=== PATIENT | male | born 1950 | race Caucasian/White ===

== ENCOUNTER 2017-06-19 14:30 | Emergency (ER) | payer MEDICAID, OTHER ==
[2017-06-19 14:44] VITALS: O2SAT 95
--- NOTE | 2017-06-19 14:56 | EDPHY ---
H & P Stated Complaint: Sent for pre-sleep lab testing for EKG; hx intermittent palpitations x 3 mo Time Seen by Provider: 06/19/17 14:47 HPI/ROS: CHIEF COMPLAINT: Arrhythmia noted at sleep lab HISTORY OF PRESENT ILLNESS: The patient is referred to the ED from a sleep lab where he was diagnosed with possible atrial fibrillation. The patient reportedly has had dyspnea and difficulty sleeping for the past several months. The patient has a past medical history significant only for hypothyroidism. The patient has had his thyroid hormone increased the 3 times over the past year. The patient tells me he has remote history of arrhythmia 20 years ago. The patient denies asymmetric calf pain or swelling. The patient denies fever, cough or congestion. The patient denies abdominal pain, vomiting or diarrhea. The patient does report he has had approximately 20 lb weight gown over the past year. REVIEW OF SYSTEMS: A comprehensive 10 point review of systems is otherwise negative aside from elements mentioned in the history of present illness. Source: Patient Exam Limitations: No limitations - Personal History Current Tetanus Diphtheria and Acellular Pertussis (TDAP): Yes - Medical/Surgical History Other PMH: thyroid. being evaluated for sleep apnea - Social History Smoking Status: Former smoker - Physical Exam Exam: General Appearance: Alert, no distress Eyes: Pupils equal and round no pallor or injection ENT, Mouth: Mucous membranes moist Respiratory: There are no retractions, lungs are clear to auscultation Cardiovascular: Regular rate and rhythm Gastrointestinal: Abdomen is soft and nontender, no masses, bowel sounds normal Neurological: A&O, normal motor function, normal sensory exam, normal cranial nerves Skin: Warm and dry, no rashes Musculoskeletal: Neck is supple nontender Extremities: symmetrical, full range of motion Constitutional: Initial Vital Signs Temperature (C) 36.5 C 06/19/17 14:41 Heart Rate 86 06/19/17 14:41 Respiratory Rate 18 06/19/17 14:41 Blood Pressure 162/78 H 06/19/17 14:41 O2 Sat (%) 95 06/19/17 14:41 O2 Delivery Mode Room Air Allergies/Adverse Reactions: No Known Allergies Allergy (Unverified 06/19/17 14:41) Home Medications: Medication Instructions Recorded Levothyroxine [Synthroid 88 mcg 88 mcg PO DAILY06 06/19/17 (*)] Medical Decision Making - Diagnostics Imaging Results: Imaging Impressions Chest X-Ray 06/19/17 14:54 Impression: Minimal airways disease. Otherwise nothing acute. ED Course/Re-evaluation: Patient presents to the ED with newly diagnosed atrial arrhythmia. In the ED is noted to have atrial flutter with 3-1 conduction. The patient is in no acute distress without acute hypoxemia. He has no complaints of chest pain or active shortness of breath. Patient's laboratory studies are unremarkable. He has an indeterminately elevated proBNP level. The patient's troponin is normal. At this point time I do feel the patient can follow up with Cardiology for a close follow-up. He has been instructed to return to the ED for palpitations, chest pain, shortness of breath or other concerns. I did curbside Dr. Mynor Price from Cardiology who has been provided the patient's telephone number and contact information. The patient will follow up with Cardiology within the next several days. The patient will contact Cardiology tomorrow. Differential Diagnosis: Differential diagnosis considered includes atrial fibrillation, atrial flutter, acute coronary syndrome, congestive heart failure, anemia, metabolic abnormality - Data Points Laboratory Results: Laboratory Results 06/19/17 15:20 06/19/17 15:20 06/19/17 06/19/17 15:20 15:20 WBC 10.35 10^3/uL H 10^3/uL (3.80-9.50) RBC 4.69 10^6/uL 10^6/uL (4.40-6.38) Hgb 15.6 g/dL g/dL (13.7-17.5) Hct 44.4 % % (40.0-51.0) MCV 94.7 fL fL (81.5-99.8) MCH 33.3 pg pg (27.9-34.1) MCHC 35.1 g/dL g/dL (32.4-36.7) RDW 12.2 % % (11.5-15.2) Plt Count 220 10^3/uL 10^3/uL (150-400) MPV 11.1 fL fL (8.7-11.7) Neut % (Auto) 62.2 % % (39.3-74.2) Lymph % (Auto) 27.5 % % (15.0-45.0) [place] % (Auto) 6.1 % % (4.5-13.0) Eos % (Auto) 2.8 % % (0.6-7.6) Baso % (Auto) 0.7 % % (0.3-1.7) Nucleat RBC Rel Count 0.0 % % (0.0-0.2) Absolute Neuts (auto) 6.44 10^3/uL 10^3/uL (1.70-6.50) Absolute Lymphs (auto) 2.85 10^3/uL 10^3/uL (1.00-3.00) Absolute Monos (auto) 0.63 10^3/uL 10^3/uL (0.30-0.80) Absolute Eos (auto) 0.29 10^3/uL 10^3/uL (0.03-0.40) Absolute Basos (auto) 0.07 10^3/uL 10^3/uL (0.02-0.10) Absolute Nucleated RBC 0.00 10^3/uL 10^3/uL (0-0.01) Immature Gran % 0.7 % % (0.0-1.1) Immature Gran # 0.07 10^3/uL 10^3/uL (0.00-0.10) Sodium 138 mEq/L mEq/L (134-144) Potassium 4.7 mEq/L mEq/L (3.5-5.2) Chloride 106 mEq/L mEq/L (97-110) Carbon Dioxide 20 mEq/l L mEq/l (22-31) Anion Gap 12 mEq/L mEq/L (8-16) BUN 21 mg/dL mg/dL (7-23) Creatinine 1.0 mg/dL mg/dL (0.7-1.3) Estimated GFR > 60 Glucose 99 mg/dL mg/dL (70-100) Calcium 9.1 mg/dL mg/dL (8.5-10.4) Troponin I < 0.012 ng/mL ng/mL (0.000-0.034) NT-Pro-B Natriuret Pep 1390 pg/mL H pg/mL (0-125) Departure - Departure Disposition: Home, Routine, Self-Care Clinical Impression: Atrial flutter Condition: Good Instructions: Atrial Flutter (ED) Additional Instructions: 1. Please contact the planning manager you have been referred to tomorrow to schedule a follow-up visit. 2. Please return to the ED for any chest pain, shortness of breath or other concerns. Referrals: Aldair Street MD [Medical Doctor] - As per Instructions
--- NOTE | 2017-06-19 15:05 | CPEKG ---
Heart Rate: 77 RR Interval: 779 QRSD Interval: 112 QT Interval: 452 QTC Interval: 512 QRS [place]: 10 T Wave [place]: 46 EKG Severity - ABNORMAL ECG - EKG Impression: A-FLUTTER W/ PREDOM 3:1 AV BLOCK, A-RATE 250 EKG Impression: PAIRED VENTRICULAR PREMATURE COMPLEXES EKG Impression: NONSPECIFIC INTRAVENTRICULAR CONDUCTION DELAY Electronically Signed By: Real Ochoa 19-Jun-2017 16:58:54
[2017-06-19 15:23] LABS: % IMMATURE GRANULYOCYTES 0.7 % (0.0-1.1); ABSOLUTE IMMATURE GRANULOCYTES 0.07 10^3/uL (0.00-0.10); ADD DIFF? NO; ADD MORPH? NO; ADD SCAN? NO; ATYPICAL LYMPHOCYTE FLAG 0 (0-99); FRAGMENT RBC FLAG 0 (0-99); HEMATOCRIT 44.4 % (40.0-51.0); HEMOGLOBIN 15.6 g/dL (13.7-17.5); LEFT SHIFT FLG 0 (0-99); LIPEMIA HEMOLYSIS FLAG 90 (0-99); MEAN CELL HEMOGLOBIN 33.3 pg (27.9-34.1); MEAN CELL HEMOGLOBIN CONCENTR. 35.1 g/dL (32.4-36.7); MEAN CELL VOLUME 94.7 fL (81.5-99.8); MEAN PLATELET VOLUME 11.1 fL (8.7-11.7); PLATELET CLUMPS FLAG 0 (0-99); PLATELET COUNT 220 10^3/uL (150-400); RED BLOOD CELL COUNT 4.69 10^6/uL (4.40-6.38); RED CELL DISTRIBUTION WIDTH 12.2 % (11.5-15.2)
[2017-06-19 15:42] LABS: ANION GAP 12 mEq/L (8-16); CALCIUM 9.1 mg/dL (8.5-10.4); CARBON DIOXIDE 20 mEq/l (22-31); CHLORIDE 106 mEq/L (97-110); GLOMERULAR FILTRATION RATE > 60; GLUCOSE 99 mg/dL (70-100); POTASSIUM 4.7 mEq/L (3.5-5.2); SODIUM 138 mEq/L (134-144)
[2017-06-19 15:53] LABS: TROPONIN I < 0.012 ng/mL (0.000-0.034)
[2017-06-19 17:04] VITALS: BP 138/82; PULSE 61; RESP 20; TEMP 98.1
== END 2017-06-19 17:04 | disposition home or self-care (01) ==
DX: I48.92 Unspecified atrial flutter (principal); Z87.891 Personal history of nicotine dependence

== ENCOUNTER → 2017-06-21 | Outpatient (CLI) | payer OTHER, MEDICAID | LOC: BHFA 13:15 | PROVIDERS: ATTEND Internal Medicine Cardiovascular Disease | DX: G47.30 Sleep apnea, unspecified (principal) ==

== ENCOUNTER → 2017-07-01 | Outpatient (CLI) | payer OTHER, MEDICAID | LOC: FCPNEURO 20:00 | PROVIDERS: ATTEND Internal Medicine Sleep Medicine | DX: G47.31 Primary central sleep apnea (principal); G47.61 Periodic limb movement disorder ==

== ENCOUNTER 2017-07-26 10:48 | Day surgery (SDC) | payer OTHER, MEDICAID ==
[2017-07-26] MEDS ORDERED: ATROPINE SULFATE 1 MG/10 ML SYR IVP ONE (10:50)
[2017-07-26] MEDS ORDERED: BENZOCAINE UNIT DOSE SPRAY HURRICAINE MM ONE (10:50)
[2017-07-26] MEDS ORDERED: MIDAZOLAM 2 MG/2 ML VIAL IVP ONE (10:50)
[2017-07-26] MEDS ORDERED: NS 500 ML IV ONE (10:50)
[2017-07-26] MEDS ORDERED: fentaNYL 100 MCG/2 ML INJ IVP ONE (10:50)
--- NOTE | 2017-07-26 11:14 | CPEKG ---
Heart Rate: 104 RR Interval: 577 QRSD Interval: 114 QT Interval: 356 QTC Interval: 469 QRS [place]: 4 T Wave [place]: 231 EKG Severity - ABNORMAL ECG - EKG Impression: ATRIAL FLUTTER, A-RATE 258 EKG Impression: NONSPECIFIC INTRAVENTRICULAR CONDUCTION DELAY EKG Impression: ABNRM R PROG, CONSIDER ASMI OR LEAD PLACEMENT Electronically Signed By: Kalyan Capone 26-Jul-2017 11:22:32
--- NOTE | 2017-07-26 11:17 | PDHPUP ---
History & Physical Update H&P update statement: This history and physical update is based on an assessment of the patient which was completed after admission or registration (within 24 hours), but prior to the surgery/procedure. H&P update: H&P reviewed & patient examined, no change in patient's condition since H&P completed
[2017-07-26 11:34] VITALS: RESP 19
[2017-07-26] MEDS ORDERED: LIDOCAINE 2% 5 ML SDV ONE (11:49)
[2017-07-26] MEDS ORDERED: PROPOFOL 200 MG/20 ML VIAL ONE (11:49)
--- NOTE | 2017-07-26 11:55 | PDANEPAE ---
ANE History of Present Illness bakari/cv ANE Past Medical History - Cardiovascular History Hx Hypertension: No Hx Arrhythmias: Yes - Pulmonary History Hx COPD: No Hx Asthma/Reactive Airway Disease: No Hx Recent Upper Respiratory Infection: No Hx Oxygen in Use at Home: No Hx Sleep Apnea: No - Neurologic History Hx Cerebrovascular Accident: No Hx Seizures: No Hx Dementia: No - Endocrine History Hx Diabetes: No - Renal History Hx Renal Disorders: No - Liver History Hx Hepatic Disorders: No ANE Review of Systems Review of Systems: - Exercise capacity METS (RN): 4 METS ANE Patient History - Allergies Allergies/Adverse Reactions: No Known Allergies Allergy (Unverified 06/19/17 14:41) - Home Medications Home Medications: Effient 07/26/17 [Last Taken 07/26/17 08:00] Levothyroxine 07/26/17 [Last Taken 07/26/17 08:00] - Anes Hx Anes Hx: no prior problems - Smoking Hx Smoking Status: Former smoker ANE Labs/Vital Signs - Labs Result Diagrams: 07/26/17 11:35 - Vital Signs Respiratory Rate: 19 Height: 177.8 cm Weight: 103.419 kg ANE Physical Exam - Airway Mallampati Score: Class 2 Mouth exam: normal dental/mouth exam - Pulmonary Pulmonary: no respiratory distress - Cardiovascular Cardiovascular: irregularly irregular - ASA Status ASA Status: II ANE Anesthesia Plan Anesthesia Plan: GA with mask
[2017-07-26 11:56] LABS: INR 1.18 (0.83-1.16)
[2017-07-26 12:05] LABS: ANION GAP 11 mEq/L (8-16); CALCIUM 9.1 mg/dL (8.5-10.4); CARBON DIOXIDE 20 mEq/l (22-31); CHLORIDE 108 mEq/L (97-110); CREATININE 1.1 mg/dL (0.7-1.3); GLOMERULAR FILTRATION RATE > 60; GLUCOSE 113 mg/dL (70-100); MAGNESIUM 1.7 mg/dL (1.6-2.3); POTASSIUM 4.4 mEq/L (3.5-5.2); SODIUM 139 mEq/L (134-144)
--- NOTE | 2017-07-26 12:17 | POSTANESTH ---
Post Anesthetic Evaluation Cardiovascular Status: Normal, Stable Respiratory Status: Normal, Stable Level of Consciousness/Mental Status: Can Participate in Eval Pain Control: Adequate, Prn Tx Ordered Nausea/Vomiting Control: Adequate, Prn Tx Ordered Complications Possibly Related to Anesthesia: None Noted
--- NOTE | 2017-07-26 12:22 | PDTEE1 ---
CAITLIN Cardioversion Procedure Procedure: electrical cardioversion, transesophageal echo Indications: other (atrial flutter) Anticoagulation: eliquis Procedural Details: Pads were placed in anterior-posterior position. CAITLIN probe was advanced and standard images obtained. There is no evidence of left atrial or left atrial appendage thrombus. Synchronized cardioversion attempt #1: 100J Results: normal sinus rhythm Conclusions: successful CAITLIN cardioversion Patient Problems: Problems Problem Status Onset Atrial flutter Acute
--- NOTE | 2017-07-26 13:24 | CPEKG ---
Heart Rate: 69 RR Interval: 870 P-R Interval: 244 QRSD Interval: 104 QT Interval: 420 QTC Interval: 450 P [place]: 23 QRS [place]: 2 T Wave [place]: 50 EKG Severity - ABNORMAL ECG - EKG Impression: SINUS RHYTHM EKG Impression: ATRIAL PREMATURE COMPLEX EKG Impression: FIRST DEGREE AV BLOCK EKG Impression: PROBABLE LEFT ATRIAL ABNORMALITY EKG Impression: ABNRM R PROG, CONSIDER ASMI OR LEAD PLACEMENT EKG Impression: BORDERLINE T WAVE ABNORMALITIES Electronically Signed By: Kalyan Capone 26-Jul-2017 13:36:56
--- NOTE | 2017-07-29 13:48 | ECHO ---
[email or web address] [address] [address] Main: [phone] Fax: Transesophageal Echocardiography Name: VENESSA ACUNA MR#: [id number] Study Date: 07/26/2017 Study Time: 11:58 AM Date of : 1950 Age: 67 year(s) Height: ( ) Weight: ( ) BSA: Gender: Male Examination: CAITLIN Indication: Atrial Flutter Image Quality: Contrast: Requested by: Kalyan Capone Heart Rate: Rhythm: BP: / Procedure Staff Credit Risk Analyst: Reading Physician: Kalyan Capone Requesting Provider: CAITLIN Exam Details Conclusions: The ejection fraction is estimated to be 40 %. An agitated saline study was performed and was negative for intracardiac shunting. Moderate mitral valve regurgitation is present. Measurements: Chambers Valvular Assessment AV/MV Valvular Assessment TV/PV Normal Normal Normal Name Value Range Name Value Range Name Value Range EF Range: 40 % Additional Measurements: Findings: The ejection fraction is estimated to be 40 %. Left Atrium: An agitated saline study was performed and was negative for intracardiac shunting. Left Atrial Appendage: No thrombus in left appendage. Mitral Valve: Moderate mitral valve regurgitation is present. Aortic Valve: The aortic valve is tri-leaflet. There is no aortic valve regurgitation. Patient: VENESSA ACUNA Study Date: 07/26/2017 Page 1 of 2 11:58 AM Exam Comments: l1n (No Signature Object) Patient: VENESSA ACUNA Study Date: 07/26/2017 Page 2 of 2 11:58 AM [id number]
== END 2017-07-26 13:47 | disposition home or self-care (01) ==
LOC: FCATH 10:48
PROVIDERS: ATTEND Internal Medicine Cardiovascular Disease
PROC: B245ZZ4 Ultrasonography of Left Heart, Transesophageal (ICD-10-PCS; principal; 2017-07-26)
PROC: 5A2204Z Restoration of Cardiac Rhythm, Single (ICD-10-PCS; principal; 2017-07-26)
DX: I48.92 Unspecified atrial flutter (principal); I34.0 Nonrheumatic mitral (valve) insufficiency; Z87.891 Personal history of nicotine dependence
CPT/HCPCS: J2704

== ENCOUNTER 2017-10-03 10:12 | Day surgery (SDC) | payer OTHER, MEDICAID ==
[2017-10-03] MEDS ORDERED: ATROPINE SULFATE 1 MG/10 ML SYR IVP ONE (10:16)
[2017-10-03] MEDS ORDERED: fentaNYL 100 MCG/2 ML INJ IVP ONE (10:16)
[2017-10-03] MEDS ORDERED: BENZOCAINE UNIT DOSE SPRAY HURRICAINE MM ONE (10:16)
[2017-10-03] MEDS ORDERED: NS 500 ML IV ONE (10:16)
[2017-10-03] MEDS ORDERED: MIDAZOLAM 2 MG/2 ML VIAL IVP ONE (10:16)
--- NOTE | 2017-10-03 10:30 | CPEKG ---
Heart Rate: 69 RR Interval: 870 QRSD Interval: 106 QT Interval: 420 QTC Interval: 450 QRS [place]: 4 T Wave [place]: 39 EKG Severity - ABNORMAL ECG - EKG Impression: A-FLUTTER W/ PREDOM 4:1 AV BLOCK, A-RATE 278 EKG Impression: PROBABLE INFERIOR INFARCT, AGE INDETERMINATE Electronically Signed By: Garima Bruno 03-Oct-2017 12:47:32
[2017-10-03 11:13] LABS: ANION GAP 11 mEq/L (8-16); APTT 28.5 SEC (23.0-38.0); CALCIUM 8.8 mg/dL (8.5-10.4); CARBON DIOXIDE 23 mEq/l (22-31); CHLORIDE 108 mEq/L (97-110); CREATININE 1.1 mg/dL (0.7-1.3); GLOMERULAR FILTRATION RATE > 60; GLUCOSE 100 mg/dL (70-100); INR 1.16 (0.83-1.16); MAGNESIUM 1.9 mg/dL (1.6-2.3); POTASSIUM 4.4 mEq/L (3.5-5.2); SODIUM 142 mEq/L (134-144)
--- NOTE | 2017-10-03 11:42 | PDANEPAE ---
ANE Past Medical History - Cardiovascular History Hx Hypertension: No Hx Arrhythmias: Yes - Pulmonary History Hx COPD: No Hx Asthma/Reactive Airway Disease: No Hx Recent Upper Respiratory Infection: No Hx Oxygen in Use at Home: No Hx Sleep Apnea: Yes - Neurologic History Hx Cerebrovascular Accident: No Hx Seizures: No Hx Dementia: No - Endocrine History Hx Diabetes: No - Renal History Hx Renal Disorders: No - Liver History Hx Hepatic Disorders: No ANE Review of Systems Review of Systems: - Exercise capacity Exercise capacity: >=4 METS ANE Patient History - Allergies Allergies/Adverse Reactions: No Known Allergies Allergy (Unverified 06/19/17 14:41) - Home Medications Home Medications: Levothyroxine 07/26/17 [Last Taken 07/26/17 08:00] Eliquis 5 mg PO BID 10/03/17 [Last Taken 10/03/17 07:00] - Anes Hx Anes Hx: no prior problems (Cardioverted twice before.) - Smoking Hx Smoking Status: Former smoker ANE Labs/Vital Signs - Labs Result Diagrams: 10/03/17 10:30 - Vital Signs Height: 178 cm Weight: 104.3 kg ANE Physical Exam - Airway Mallampati Score: Class 2 Mouth exam: normal dental/mouth exam - Pulmonary Pulmonary: no respiratory distress, no rales or rhonchi, clear to auscultation - Cardiovascular Cardiovascular: irregularly irregular - ASA Status ASA Status: III ANE Anesthesia Plan Anesthesia Plan: GA with mask
[2017-10-03] MEDS ORDERED: PROPOFOL 200 MG/20 ML VIAL ONE ×2 (11:43→11:46)
--- NOTE | 2017-10-03 11:51 | PDGENHP ---
History & Physical Chief Complaint: symptomatic AFL Relevant Physical Exam: [id number] irreg. cta. ao 3 Cardiorespiratory Assessment: symptomatic AFL for CAITLIN CV
--- NOTE | 2017-10-03 12:18 | PDTEE1 ---
CAITLIN Cardioversion Procedure Procedure: electrical cardioversion, transesophageal echo Indications: cardiomyopathy, other (atrial flutter) Anticoagulation: eliquis Procedural Details: Pads were placed in anterior-posterior position. CAITLIN probe was advanced and standard images obtained. There is no evidence of left atrial or left atrial appendage thrombus. Synchronized cardioversion attempt #1: 100J Results: normal sinus rhythm Conclusions: successful CAITLIN cardioversion (Patient has been counseled re. ablation and will be scheduled for ablation in October.) Patient Problems: Problems Problem Status Onset Atrial flutter Acute
--- NOTE | 2017-10-03 12:21 | POSTANESTH ---
Post Anesthetic Evaluation Cardiovascular Status: Normal, Stable Respiratory Status: Normal, Stable, Similar to Pre-op Cond. Level of Consciousness/Mental Status: Can Participate in Eval, Alert and Oriented Pain Control: Adequate, Prn Tx Ordered Nausea/Vomiting Control: Adequate, Prn Tx Ordered Complications Possibly Related to Anesthesia: None Noted
--- NOTE | 2017-10-03 12:49 | CPEKG ---
Heart Rate: 68 RR Interval: 882 P-R Interval: 244 QRSD Interval: 102 QT Interval: 432 QTC Interval: 460 P [place]: 30 QRS [place]: -2 T Wave [place]: 19 EKG Severity - ABNORMAL ECG - EKG Impression: SINUS RHYTHM EKG Impression: FIRST DEGREE AV BLOCK EKG Impression: PROBABLE LEFT ATRIAL ABNORMALITY Electronically Signed By: Garima Bruno 03-Oct-2017 18:39:16
== END 2017-10-03 13:30 | disposition home or self-care (01) ==
LOC: FCATH 10:12
PROVIDERS: ATTEND Internal Medicine Cardiovascular Disease
PROC: 5A2204Z Restoration of Cardiac Rhythm, Single (ICD-10-PCS; principal; 2017-10-03)
PROC: B245ZZ4 Ultrasonography of Left Heart, Transesophageal (ICD-10-PCS; principal; 2017-10-03)
DX: I48.92 Unspecified atrial flutter (principal); I50.22 Chronic systolic (congestive) heart failure; Z79.01 Long term (current) use of anticoagulants; Z87.891 Personal history of nicotine dependence
CPT/HCPCS: J0461; J2704

== ENCOUNTER 2017-11-06 07:09 | Observation (INO) | payer OTHER, MEDICAID ==
[2017-11-06] MEDS ORDERED: NS 1,000 ML IV ONE (07:12)
--- NOTE | 2017-11-06 07:33 | CPEKG ---
Heart Rate: 68 RR Interval: 882 P-R Interval: 232 QRSD Interval: 100 QT Interval: 380 QTC Interval: 405 P [place]: 17 QRS [place]: 7 T Wave [place]: 41 EKG Severity - ABNORMAL ECG - EKG Impression: SINUS RHYTHM EKG Impression: VENTRICULAR PREMATURE COMPLEX EKG Impression: FIRST DEGREE AV BLOCK EKG Impression: PROBABLE LEFT ATRIAL ABNORMALITY Electronically Signed By: Kalyan Capone 06-Nov-2017 08:41:20
[2017-11-06 07:42] LABS: PLATELET COUNT 210 10^3/uL (150-400)
[2017-11-06 07:51] LABS: INR 0.95 (0.83-1.16); PROTIME(PATIENT) 12.9 SEC (12.0-15.0)
[2017-11-06] MEDS ORDERED: HEPARIN 10,000 UNIT/10 ML MDV (1,000 UNIT/ML) ONE (08:21)
[2017-11-06] MEDS ORDERED: LIDOCAINE 1% 300 MG/30 ML SDV ONE (08:21)
[2017-11-06] MEDS ORDERED: BUPIVACAINE 0.5% 30 ML SDV ONE (08:21)
[2017-11-06] MEDS ORDERED: MIDAZOLAM 2 MG/2 ML VIAL IVP ONE (08:23)
--- NOTE | 2017-11-06 08:24 | PDANEPAE ---
ANE History of Present Illness here for AF ablation ANE Past Medical History - Cardiovascular History Hx Hypertension: No Hx Arrhythmias: Yes Hx CHF / Valvular Disease: No Hx Palpitations: Yes - Pulmonary History Hx COPD: No Hx Asthma/Reactive Airway Disease: No Hx Recent Upper Respiratory Infection: No Hx Oxygen in Use at Home: No Hx Sleep Apnea: Yes - Neurologic History Hx Cerebrovascular Accident: No Hx Seizures: No Hx Dementia: No - Endocrine History Hx Diabetes: No - Renal History Hx Renal Disorders: No - Liver History Hx Hepatic Disorders: No ANE Review of Systems Review of systems is: negative Review of Systems: - Exercise capacity Exercise capacity: >=4 METS ANE Patient History - Allergies Allergies/Adverse Reactions: No Known Allergies Allergy (Unverified 06/19/17 14:41) - Home Medications Home medications: home medication list seen and reviewed Home Medications: Levothyroxine [Synthroid 112 mcg (*)] 224 mcg PO DAILY06 07/26/17 [Last Taken ] Apixaban [Eliquis] 5 mg PO BID 10/03/17 [Last Taken 11/03/17] Herbals/Supplements -Info Only 1 ea PO DAILY 10/30/17 [Last Taken Unknown] Multivitamins [Multivitamin (*)] 1 each PO DAILY 10/30/17 [Last Taken 11/05/17] - NPO status NPO Status: no food or drink >8 hours - Anes Hx Anes Hx: no prior problems - Smoking Hx Smoking Status: Former smoker ANE Labs/Vital Signs - Labs Result Diagrams: 11/06/17 07:30 11/06/17 07:30 - Vital Signs Vital Signs: reviewed preoperatively; see RN documention for details Height: 178 cm Weight: 104.3 kg ANE Physical Exam - Airway Neck exam: FROM Mallampati Score: Class 1 Mouth exam: dentures - Pulmonary Pulmonary: no respiratory distress - Cardiovascular Cardiovascular: regular rate and rhythym - ASA Status ASA Status: II ANE Anesthesia Plan Anesthesia Plan: general endotracheal anesthesia
[2017-11-06] MEDS ORDERED: fentaNYL 100 MCG/2 ML INJ ONE (08:27)
[2017-11-06] MEDS ORDERED: PROPOFOL/EMULSION 500 MG/50 ML BOTTLE IV ONE ×2 (08:28→09:12)
[2017-11-06] MEDS ORDERED: MIDAZOLAM 2 MG/2 ML VIAL ONE (08:28)
--- NOTE | 2017-11-06 08:43 | PDGENHP ---
History & Physical Chief Complaint: AFL History of Present Illness: AFL Pertinent Past, Social, Family History: Cardiomyopathy Relevant Physical Exam: [id number]. CTA. AO3 Cardiorespiratory Assessment: AFL with tachycardia mediated CMP, for AFL ablation
[2017-11-06] MEDS ORDERED: ATROPINE SULFATE 1 MG/10 ML SYR ONE (11:19)
[2017-11-06] MEDS ORDERED: SUGAMMADEX SODIUM 200 MG/2 ML VIAL IVP ONE (11:22)
[2017-11-06] MEDS ORDERED: ONDANSETRON 4 MG/2 ML VIAL IVP PRN (11:26)
[2017-11-06] MEDS ORDERED: ACETAMINOPHEN 325 MG TAB PO PRN (11:26)
--- NOTE | 2017-11-06 11:26 | EPPROC ---
Electrophysiology Procedure Note: ELECTROPHYSIOLOGIC STUDY AND CATHETER MEDIATED ABLATION FOR SUBEUSTACHIAN ISTHMUS DEPENDENT COUNTERCLOCKWISE ATRIAL FLUTTER: INDICATION: Recurrent atrial flutter PROCEDURES PERFORMED: 35000-53 EP evaluation with RA/RV/LA pace/record, with arrhythmia induction 54616-47 EP evaluation with RA/RV pace record, insert/reposition catheter, with arrhythmia induction 20618 SVT ablation 90093 3D mapping Fluoroscopy Catheters & Anesthesia: The patient arrived in the Electrophysiology Laboratory in the fasting state. The right clavicular region, right groin, and left groin area were prepped and draped in the usual sterile manner. Anesthesiologist Dr. Rosa Mckinney administered general anesthesia. Appropriate non-invasive blood pressure, pulse oximetry and end-tidal CO2 monitoring was established. All catheters were placed percutaneously using the modified Seldinger technique , and advanced into position under fluoroscopic guidance. One #7 [place] deflectable octapolar electrode catheter was advanced to the His-bundle position via the left femoral vein (2mm spacing; except the proximal ring which was 25cm from the tip used for unipolar recordings). One #7 [place] deflectable catheter with 10 pairs of electrodes was placed via the left femoral vein into the coronary sinus. One # 7 [place] Halo catheter was inserted through the right femoral vein and was placed at the tricuspid annulus. Heparin 5000 + 3000 U was given (2 boluses during the case) Programmed stimulation was performed from the right atrium, coronary sinus ( left atrium) and right ventricle. Parahisian pacing demonstrated all retrograde conduction over the AV node. On arrival to the Electrophysiology Laboratory the patient was in sinus rhythm. Atrial flutter, CL 230-250 ms was easily induced by CS pacing. Entrainment mapping from lateral TA, septal TA, proximal CS and distal CS confirmed cavotricuspid isthmus dependent atrial flutter. In preparation for ablation of typical atrial flutter, a high-resolution 3D (3 dimensional) Carto electroanatomical map of the sub-Eustachian isthmus and right atrium was obtained during pacing of the posterolateral coronary sinus. For ablation of typical atrial flutter, one Agilis sheath was placed in the right atrium. A #8 [place] deflectable quadrapolar electrode catheter (2mm-5mm- 2mm spacing) with 3.5 mm irrigated tip electrode and location sensor for the Navita mapping system was inserted in the long sheath and advanced to the right atrium. Radiofrequency applications were applied between the tricuspid annulus at 0630 oclock as seen in the AMHARIC view and the inferior vena cava. This achieved conduction block across the isthmus. Following ablation of the atrial flutter, programmed atrial stimulation was performed in the baseline state and during infusion of isoproterenol 2 mcg/min. No atrial arrhythmias were inducible post ablation. Post ablation, a high-resolution electroanatomical map of the sub-Eustachian isthmus was obtained during pacing of the posterolateral coronary sinus. This confirmed conduction block across the sub-Eustachian isthmus. Bidirectional block was also confirmed by pacing. The catheters were removed. Long sheath was changed to short 9Fr sheath. Protamine was administered. The patient was transferred to the cardiovascular holding area in stable condition. Vascular access sheaths were removed in the holding area. There were no apparent complications. CONCLUSIONS: 1. Cavotricuspid isthmus dependent counterclockwise atrial flutter. 2. Successful catheter mediated ablation of cavotricuspid isthmus achieving bi -directional conduction block across cavotricuspid isthmus. 3. No atrial arrhythmias inducible post ablation. 4. No apparent complications. Patient Problems: Problems Problem Status Onset Atrial flutter Acute
--- NOTE | 2017-11-06 12:17 | CPEKG ---
Heart Rate: 58 RR Interval: 1034 P-R Interval: 252 QRSD Interval: 102 QT Interval: 456 QTC Interval: 448 P [place]: 29 QRS [place]: 13 T Wave [place]: 7 EKG Severity - ABNORMAL ECG - EKG Impression: SINUS RHYTHM EKG Impression: FIRST DEGREE AV BLOCK EKG Impression: BORDERLINE T WAVE ABNORMALITIES Electronically Signed By: Kalyan Capone 06-Nov-2017 12:53:16
[2017-11-07 05:20] LABS: PLATELET COUNT 170 10^3/uL (150-400)
[2017-11-07 05:30] LABS: INR 0.99 (0.83-1.16); PROTIME(PATIENT) 13.3 SEC (12.0-15.0)
[2017-11-07 05:37] LABS: CREATINE KINASE 41 IU/L (0-224)
[2017-11-07] MEDS ORDERED: LEVOTHYROXINE 112 MCG TAB PO SCH (06:00)
[2017-11-07 08:30] VITALS: BP 147/67; PULSE 70; RESP 18; TEMP 98.2; O2SAT 94
--- NOTE | 2017-11-07 09:11 | ECHO ---
[email or web address] [address] [address] Main: [phone] Fax: Transthoracic Echocardiogram Name: VENESSA ACUNA MR#: [id number] Study Date: 11/07/2017 Study Time: 07:44 AM Date of : 1950 Age: 67 year(s) Height: 177.8 cm (70 in.) Weight: 103.87 kg (229 lb.) BSA: 2.21 m2 Gender: Male Examination: Echo Indication: F/U post EP study Image Quality: Contrast: Requested by: Kalyan Capone BP: / Heart Rate: Rhythm: Indication: F/U post EP study Procedure Staff Form Presser: Maryjo Miller Physician: Kalyan Capone Requesting Provider: Conclusions: Normal global systolic LV function. The ejection fraction is estimated to be 60-65 %. The left atrium is mildly to moderately dilated. Mild mitral valve regurgitation is present. Mild to moderate tricuspid valve regurgitation. No pericardial effusion. Measurements: Chambers Valvular Assessment AV/MV Valvular Assessment TV/PV Normal Normal Normal Name Value Range Name Value Range Name Value Range Ao Pauline (MM): 3.9 cm (2.2 cm-3.7 AV meanP mmHg ( - ) TR Vmax: 2.84 mm/s ( - ) cm) MV E Vmax: 0.87 m/s ( - ) TR PGmax: 32 mmHg ( - ) IVSd (2D): 1.1 cm (0.6 cm-1.1 MV A Vmax: 0.64 m/s ( - ) syst. PAP: 37 mmHg ( - ) cm) MV E/A: 1.36 ( - ) LVDd (2D): 5.5 cm (4.2 cm-5.9 cm) LVDs (2D): 3.6 cm (2.1 cm-4 cm) LVPWd (2D): 0.8 cm (0.6 cm-1 cm) LVEF (MOD4): 65 % (>=55 %) EF Range: 60-65 % Continued Measurements: Chambers Valvular Assessment AV/MV Valvular Assessment TV/PV Name Value Name Value Name Value LADs: 4.5 cm MV E' Septal: 0.07 m/s CVP (est.): 5 mmHg LADs Lon.9 cm MV E/E' Septal: 12.40 Patient: VENESSA ACUNA Study Date: 11/07/2017 Page 1 of 2 07:44 AM LA Area: 32.8 cm2 MV E/E' Lateral: 8.00 Additional Vessels Name Value Ao Ascendin.2 cm Findings: Left Ventricle: Normal size left ventricle. No LV hypertrophy. Normal global systolic LV function. The ejection fraction is estimated to be 60-65 %. Right Ventricle: Normal size right ventricle. Left Atrium: The left atrium is mildly to moderately dilated. Right Atrium: The right atrium is normal in size. Mitral Valve: The mitral valve is normal in appearance and function. Mild mitral valve regurgitation is present. Aortic Valve: The aortic valve is normal in appearance and function. Tricuspid Valve: The tricuspid valve is normal in appearance and function. Mild to moderate tricuspid valve regurgitation. The pulmonary artery pressure is normal. Pulmonic Valve: The pulmonic valve is normal in appearance and function. Aorta: The aorta is normal. Normal size aortic root measuring 3.9 cm. Normal size ascending aorta measuring 3.2 cm. Pericardium: No pericardial effusion. (No Signature Object) Patient: VENESSA ACUNA Study Date: 11/07/2017 Page 2 of 2 07:44 AM [id number]
--- NOTE | 2017-11-07 09:12 | CPEKG ---
Heart Rate: 67 RR Interval: 896 P-R Interval: 216 QRSD Interval: 100 QT Interval: 412 QTC Interval: 435 P [place]: 46 QRS [place]: -3 T Wave [place]: 31 EKG Severity - ABNORMAL ECG - EKG Impression: SINUS RHYTHM EKG Impression: CONSIDER ANTEROSEPTAL INFARCT Electronically Signed By: Kalyan Capone 07-Nov-2017 12:38:48
[2017-11-07] MEDS ORDERED: APIXABAN 5 MG TAB PO SCH (09:30)
--- NOTE | 2017-11-07 10:10 | GDS ---
[f rep st] DISCHARGE SUMMARY SUPERVISING CATH LAB TECHNOLOGIST: Dr. Kalyan Capone. ADMISSION DIAGNOSES: 1. Paroxysmal atrial flutter. 2. History of systolic congestive heart failure. 3. Hypothyroidism. DISCHARGE SUMMARY: 1. Paroxysmal atrial flutter. 2. Status post electrophysiology study with finding cavotricuspid isthmus dependent counterclockwise atrial flutter, successful catheter-mediated ablation. 3. History of systolic heart failure. 4. Hypothyroidism. PROCEDURES PERFORMED DURING HOSPITALIZATION: 1. Electrocardiogram. 2. Electrophysiology study. 3. Catheter-mediated ablation of atrial flutter. 4. Echocardiogram. BRIEF HISTORY: Please see H and P. Mr. Guzmán is a 67-year-old male with history of atrial flutte r, this has been known in the past to cause systolic heart failure for him. Recently in July, he was in persistent atrial flutter and was cardioverted. Unfortunately, he was found back again in atr ial flutter in September. This was discussed with Dr. Capone, and felt the patient a good candidate to [facility] electrophysiology to see if potentially ablation could be done. HOSPITAL COURSE: Patient was admitted through CVC, prepped for procedure, and taken to electrophysio logy suite. There, Dr. Capone performed electrophysiology procedure, successfully for identifying a cou nterclockwise atrial flutter. At that point, he switched to intervention, and was successfully able to ablate, no inducible atrial arrhythmias were noted after ablation. No apparent complications. Andre messer was transferred back to the CVC, and ultimately to the PCU for overnight observation. Patient reports no chest pain or shortness of breath. He has been up and walking in the unit today without a ny difficulties. He denies any palpitations. Continuous cardiac monitoring shows occasional PVC, no ashlie 1 episode of bigeminy PVC yesterday on arrival to the unit after ablation, but no other malignant arrhythmias that lasted for a few seconds, but no other malignant arrhythmias or pauses noted. PHYSICAL EXAMINATION: Done today. GENERAL APPEARANCE: Medium built, mildly obese, male. He is alert and oriented to person, place, time, and situation. Appears to be under no acute distre ss. VITAL SIGNS: Current blood pressure is 147/67, heart rate 70, sinus rhythm on the monitor, resp irations 18, saturating 94% on room air, temperature of 36.8 degrees Celsius. HEENT: Head is normoc ephalic. Lips and tongue are pink and moist with no signs of cyanosis. Conjunctivae pink. NECK: T rachea is midline, +2 carotid pulses bilateral. No auscultated bruits, no jugular vein distention. RESPIRATORY: Lungs clear to auscultation. No rhonchi, rales or wheezes. No accessory muscle use. No intercostal muscle retraction noted. CARDIAC: Regular rate, regular rhythm, S1, S2, no S3, S4, g allops, rubs or murmur noted. ABDOMEN: Soft, nontender, bowel sounds x4 quadrants. No organomegaly . No palpable masses. SKIN: [place], warm, dry, no cyanosis, no clubbing, no peripheral edema. VASCULAR: +2 carotids bilateral, +2 radials bilateral, +2 dorsal pedal and posterior tibial pulses b ilateral. Catheter insertion site, bilateral groin sites, each site without redness, swelling, drain age, ecchymosis, or hematoma. No auscultated bruit are noted over either site. LABORATORY STUDIES: Drawn today show WBC of 10.35, hemoglobin of 13.0, hematocrit of 38.7, platelet count of 170. INR 0.99. Sodium 140, potassium 4.2, chloride 105, CO2 25, BUN 18, creatinine 0.9, gl ucose 100, calcium 8.3. CK 41. CK-MB 2.4. Troponin of 0.472. Not expected to have elevated cardia c markers status post ablation. STUDIES: EP and ablation procedure, as mentioned above, morning electrocardiogram shows sinus rhythm with nonspecific T-wave abnormalities. Echocardiogram this morning showing normal global LV systolic function, EF 60% to 65%. LE was mildly to moderately dilated. Mild MR, [id number] TR, no pericardial effusion. DISCHARGE DISPOSITION: Patient will be discharged home in stable condition. He is under activity re strictions of not lifting more than 10 pounds for the next week and no strenuous activities for the n ext 2 weeks. He may shower, but he is not allowed to submerge either access site in standing water ( no baths, no swimming). DISCHARGE MEDICATIONS: Please see discharge medication reconciliation sheet, note patient has been r estarted on home dose of Eliquis. DISCHARGE INSTRUCTIONS: Post atrial flutter ablation, discharge instructions went over with the zoe ent including activity restrictions, monitoring for signs of an infection, and DVT precautions. Zoe ent has been told that for every 35-45 minutes sitting, he should get up and walk for 5-10 minutes. PLAN: Explained to the patient, he verbalizes understanding. Patient has a followup appointment set with Dr. Capone on December 07. At the time of discharge, patient verbalizes understanding and has n o questions or concerns. He has been told that if any problems or concerns post discharge, he is to notify our office or return to the hospital. Total time spent on discharge greater than 30 minutes. /[id number]/MODL
--- NOTE | 2017-11-07 12:48 | ASDISCHSUM ---
Discharge Information Plan Status:Home with No Needs Medically Cleared to Leave:11/06/2017 Discharge Date:11/07/2017 11:12 AM CM D/C Disposition: ADT D/C Disposition:Home, Routine, Self-Care Projected Discharge Date:11/07/2017 12:00 AM Transportation at D/C: Discharge Delay Reason: Follow-Up Date:11/07/2017 12:00 AM Discharge Slot: Final Diagnosis: Placement Information Patient Contact Information Contact Name:CHOCO Relationship:Friend Address: Work Phone: City: [facility] Phone: State/[place] Code: Email: Financial Information Financial Class: Primary Plan Desc:MEDICARE OUTPATIENT Primary Plan Number:[id number] Secondary Plan Desc:MEDICAID HEALTH FIRST TRAINING AND QUALITY MANAGER Secondary Plan Number:[id number] Assessment Information Intervention Information
== END 2017-11-07 11:12 | disposition home or self-care (01) ==
LOC: FCATH 07:09 → F2W 11:26
PROVIDERS: ADMIT Internal Medicine Cardiovascular Disease; ATTEND Internal Medicine Cardiovascular Disease
PROC: 5A1223Z Performance of Cardiac Pacing, Continuous (ICD-10-PCS; principal; 2017-11-06)
PROC: 02573ZZ Destruction of Left Atrium, Percutaneous Approach (ICD-10-PCS; principal; 2017-11-06)
PROC: 4A023FZ Measurement of Cardiac Rhythm, Percutaneous Approach (ICD-10-PCS; principal; 2017-11-06)
PROC: 02K83ZZ Map Conduction Mechanism, Percutaneous Approach (ICD-10-PCS; principal; 2017-11-06)
PROC: 02H73MZ Insertion of Cardiac Lead into Left Atrium, Percutaneous Approach (ICD-10-PCS; principal; 2017-11-06)
PROC: 02563ZZ Destruction of Right Atrium, Percutaneous Approach (ICD-10-PCS; principal; 2017-11-06)
PROC: 025K3ZZ Destruction of Right Ventricle, Percutaneous Approach (ICD-10-PCS; principal; 2017-11-06)
PROC: B2151ZZ Fluoroscopy of Left Heart using Low Osmolar Contrast (ICD-10-PCS; principal; 2017-11-06)
DX: I48.0 Paroxysmal atrial fibrillation (principal); E03.9 Hypothyroidism, unspecified
CPT/HCPCS: 93005; 93306; 93613; 93621; 93653; C1731; C1732; C1766; J1644; J2250; J2704; J3010; J0461

== ENCOUNTER → 2018-01-16 | Outpatient (CLI) | payer OTHER, MEDICAID | LOC: BHFA 09:00 | PROVIDERS: ATTEND Internal Medicine Cardiovascular Disease | DX: R94.31 Abnormal electrocardiogram [ECG] [EKG] (principal); I48.92 Unspecified atrial flutter | CPT/HCPCS: 78452; 93017; A9500; J2785 ==

== ENCOUNTER → 2018-08-03 | Outpatient (CLI) | payer OTHER, MEDICAID | LOC: BHFA 10:30 | PROVIDERS: ATTEND Internal Medicine Cardiovascular Disease | DX: I48.92 Unspecified atrial flutter (principal) ==

== ENCOUNTER → 2018-08-10 | Outpatient (CLI) | payer OTHER, MEDICAID | LOC: FCPNEURO 20:00 | PROVIDERS: ATTEND Internal Medicine Sleep Medicine | DX: G47.33 Obstructive sleep apnea (adult) (pediatric) (principal); G47.61 Periodic limb movement disorder ==

== ENCOUNTER → 2018-08-16 | Outpatient (CLI) | payer OTHER, MEDICAID | LOC: BHFA 10:00 | PROVIDERS: ATTEND Internal Medicine Interventional Cardiology | DX: I48.92 Unspecified atrial flutter (principal) ==